=== PATIENT | male | born 1960 | race Caucasian/White ===

== ENCOUNTER 2017-05-12 10:33 | Day surgery (SDC) | payer OTHER ==
[~2017-05-12] VITALS: Ht 170.2 cm; Wt 95.2 kg
[~2017-05-12 10:33] MED LIST: ASPI-973 PO; ATOR40TA69 PO; CHOL200025 PO; GLPZ5T PO; LISI-571 PO; Lactated Ringer's 1,000 ML IV ONE; METF1000 PO; OMEP20TA24 PO; UBID100C PO
[2017-05-12] MEDS ORDERED: Propofol 10,000 mCg/mL 20 mL Inj ONE (10:34)
[2017-05-12 11:21] VITALS: BP 120/76; PULSE 64; RESP 16; O2SAT 96
--- NOTE | 2017-05-12 11:55 | PCM.HPANE ---
Patient Data Surgeon Admitting Provider: Attending Provider:Kalyan Altamirano MD Primary Care Physician:Vidhya Joshua MD Other Provider:Mauro Ellis Anesthesia Reason for Visit Colon Cancer Screening Ht/WT & BMI Height (Feet): 5 Height (Inches): 7 Weight (Kilograms): 95.25 Body Mass Index 32.00 Allergies Coded Allergies: No Known Drug Allergies (Verified Allergy, Unknown, 05/12/17) Past Anesthesia History Anesthesia History: Denies:: Abnormal Airway, Anesthesia Reactions, Difficult Intubation, Fam Anesthesia Reaction, Fam Malignant Hypertherm, Malignant Hyperthermia Diabetes History Hx Diabetes?: Yes MRSA MRSA: No Medications Blood Thinner: Aspirin Last Dose Blood Thinner: May 11, 2017 Home Meds Incl Beta Lou: No Active Scripts Lisinopril 5 Mg Tablet5 Mg PO DAILY #30 TABLET Ref 0 Prov:Mary Lyles DO 03/16/16 Atorvastatin Calcium 40 Mg Epkxqw82 Mg PO HS #30 TABLET Prov:Mary Lyles DO 03/16/16 Reported Medications Cholecalciferol (Vitamin D3) (Vitamin D3)2,000 Unit Tablet2,000 Unit PO DAILY 05/11/17 Omeprazole Magnesium (Prilosec Otc)20 Mg Tablet.dr20 Mg PO 3x week #1 PKG Ref 0 05/11/17 Glipizide 5 Mg Tablet5 Mg PO HS 30 Days 05/11/17 Ubidecarenone (Coenzyme Q10)100 Mg Pebpein662 Mg PO DAILY 05/11/17 Aspirin 81 Mg Falric02 Mg PO DAILY Ref 0 05/11/17 Metformin (Glucophage)1,000 Mg Tablet1,000 Mg PO BID Ref 0 05/11/17 Discontinued Reported Medications Glipizide 5 Mg Tablet2.5 Mg PO MORNING 30 Days 05/11/17 Discontinued Scripts [place], Insulin Disposable (Lite Touch)1 Each Dis.needle #90 Each Mc Prov:Mary Lyles DO 03/16/16 Syring W-Ndl,Disp,Insul,0.3ML (Insulin Syringe)1 Each Disp.syrin #90 Each Mc Prov:Mary Lyles DO 03/16/16 Insulin Lispro (HumaLOG U100 Insulin Pen)100 Unit/1 Ml Insuln.pen5 Unit SUBQ DIRECTED #30 PENINJ Ref 0 < 140: 0 unit 141-199: 1 unit 200-249: 2 units 250-299: 3 units 300-349: 4 units >350: 5 units Prov:Mary Lyles DO 03/16/16 Metformin ER 500 Mg Ffzwef158 Mg PO BID #60 TABLET Ref 0 Prov:Mary Lyles DO 03/16/16 Insulin Glargine (Lantus U100 Insulin Vial)100 Unit/Ml Vial16 Unit SUBQ HS #30 VIAL Ref 0 Prov:Mary Lyles DO 03/16/16 Aspirin Chew 81 Mg Chew81 Mg PO DAILY #30 Prov:Mary Lyles DO 03/16/16 Blood Glucose Cntl Hi & Normal (Accu-Chek Compact Blue Control)1 Each Each #1 Each Mc Prov:Mary Lyles DO 03/16/16 History History of ENT Problems?: No HEENT History: Denies:: Abnormal Airway Difficult Intubation Dysphagia Hearing Problem Denture Type: None Teeth Condition: Within Normal Limits Hx of Heart Problems?: Yes Cardiovascular History: Positive for:: Hypertension Denies:: AICD Atrial Fibrillation Chest Pain Pacemaker Valvular Heart Disease Other History/Comments well controlled htn with medications Hx of Respiratory Problem?: No Respiratory History: Denies:: Asthma COPD Cough Hemoptysis Pneumonia Tuberculosis Hx Neurologic Problems?: Yes Neurological History: Positive for:: CVA (03/2016) Other History/Comments residual right side dweakness Hx of GI Problems?: Yes Other History/Comment screening colonoscopy Hx of Problems?: No Hx Musculoskeletal Problems?: No Musculoskeletal History: Denies:: Fibromyalgia Joint Replacement Hx of Psycho/Social Problems?: No Psycho Social History: Denies:: Anxiety Hx Depression Hx Surgeries?: Yes (tonsils) Hx Any Other Health Problems?: No History Blood Transfusions: Denies:: Blood Transfusions Hx Diabetes: Yes Hx Alcohol Use: Yes (once in a while)Hx Substance Use: No Smoking Status: Never Smoker Stop/Bang Treated for Sleep Apnea?: No Do You Have a CPAP Machine?: No S-Snoring: Do You Snore Loudly: No T-Tired: feel tired, fatigued: No O-Obsered: Observed not breath: No P-Blood Pressure: treated: Yes B- Body Mass Index > 35 kg/m2: No A- Age over 50: Yes N- Neck Large Circumference: No G- Gender Male: Yes KERRI Total Score: 3 Risk Assessment Category Category 1A: Patient has history of documented sleep apnea, and HAS NOT received any narcotic, sedative or anesthesia administration during this stay. Category 1B: Patient has history of documented sleep apnea, and HAS received any narcotic , sedative or anesthesia administration during this stay Category 2: Patient has SUSPECTED Obstructive Sleep Apnea, and HAS received any narcotic , sedative or anesthesia administration during this stay. Category 3: Patient has SUSPECTED Obstructive Sleep Apnea and HAS NOT received narcotic, sedative or anesthesia administration during this stay. Category 4: Outpatient in Procedural Areas with known sleep apnea or who screen positive for High Risk via the STOP/BANG questionnaire. Exam Exam Vital Signs Vital Signs Date Time Temp Pulse Resp B/P Pulse Ox O2 Delivery O2 Flow Rate FiO2 05/12/17 11:21 36.6 64 16 120/76 96 Room Air General Appearance: Alert, Oriented X3, Cooperative, No Acute Distress HEENT/AIRWAY: MP 2 Lungs: Clear to Auscultation, Normal Air Movement Heart: Exam Unremarkable, Regular Rate/Rhythm, No Murmurs/Rubs/Gallops Meds/Labs/Diagnostics Admission Meds Current Medications Lactated Ringer's (Lr) 1,000 ml @ 10 mls/hr Q24H ONCE IV Last administered on 05/12/17 11:28; Start 05/12/17 at 06:00; Stop 05/13/17 at 05:59 Plan Impression Patient chart reviewed, patient interviewed and anesthestic plan with risks, benefits, and alternatives discussed, and informed consent obtained. ASA Physical Status: ASA3 Severe Disease Anesthetic Plan: TIVA Bene/Risks/Altern/Consents: Yes HP Complete Prior to Induction: Yes Amadou Velazquez MD May 12, 2017 11:55
[2017-05-12 12:20] VITALS: BP 102/68; PULSE 74; RESP 16; O2SAT 95
--- NOTE | 2017-05-12 12:25 | PCM.ANEP1 ---
Post Anesthesia PACU Phase 1 Assessment Vital Signs Vital Signs Date Time Temp Pulse Resp B/P Pulse Ox O2 Delivery O2 Flow Rate FiO2 05/12/17 12:20 74 16 102/68 95 Room Air 05/12/17 11:21 36.6 64 16 120/76 96 Room Air Anesthetic Administered: TIVA Level of Alertness: Awake, talking PAREKH's with Equal Strength: Yes Pain: No Nausea or Vomiting: No CV Function & Hydration Stable: Yes Airway Device: Oxygen Delivery: Nasal Cannula Lungs: Clear to Auscultation, Normal Air Movement PACU Phase 2 Assessment Complications: No Follow up Care: No Patient Instructions Provided: N/A Amadou Velazquez MD May 12, 2017 12:25
[2017-05-12 12:40] VITALS: BP 118/77; PULSE 66; RESP 14; O2SAT 98
--- NOTE | 2017-05-12 13:05 | ENDO ---
[address] [address] ENDOSCOPY PROCEDURE PATIENT: TRISTAN RANDALL : 1960 MR#: [id number] ADMIT: 05/12/2017 JOB ID: [id number] DATE: 05/12/2017 PROCEDURE: Colonoscopy. INDICATION: Colon cancer screening. The patient's ASA classification, Mallampati score and medications as per Dr. Jhonathan Velazquez's anesthesia report. INSTRUMENT USED: PCF H 180 AL. PREPARATION QUALITY: Was poor. PROCEDURE DETAILS: After informed consent was obtained, the patient was brought into the GI suite, where he was placed on oxygen via nasal cannula and monitored with continuous pulse oximeter, telemetry and blood pressure monitoring. A time-out was performed. Then, he was placed in the left lateral decubitus position and medications were administered for sedation. Digital rectal examination was performed, which was unremarkable. The colonoscope was then inserted into the rectum and advanced under direct visualization to the cecum, which was identified by the presence of the ileocecal valve. Once the cecum was reached, the colonoscope was withdrawn back into the rectum as the mucosa and lumen were examined. In the rectum, retroflexion was performed. Following retroflexion, remaining air in the rectum was suctioned, and procedure was completed. FINDINGS: 1. The colon prep was poor and this extended from the mid transverse colon to the cecum. There was some semi-solid stool coating lining of the colon which we were unable to clear with suction and irrigation. 2. There was an approximately 6-7 mm sessile polyp that was seen in the cecum. However, as visualization was poor in the cecum, this polyp was not removed. IMPRESSION: 1. Poor prep. 2. Cecal polyp not removed. RECOMMENDATIONS: Repeat prep today and schedule for a repeat colonoscopy tomorrow. COMPLICATIONS: None. ESTIMATED BLOOD LOSS: 0.
== END 2017-05-12 23:59 | disposition home or self-care (01) ==
LOC: END 10:33
PROVIDERS: ATTEND Internal Medicine Gastroenterology
PROC: 0DJD8ZZ Inspection of Lower Intestinal Tract, Via Natural or Artificial Opening Endoscopic (ICD-10-PCS; principal; 2017-05-12 11:30)
DX: Z12.11 Encounter for screening for malignant neoplasm of colon (principal); K63.5 Polyp of colon; I69.351 Hemiplegia and hemiparesis following cerebral infarction affecting right dominant side; Z79.82 Long term (current) use of aspirin; E11.9 Type 2 diabetes mellitus without complications; Z79.84 Long term (current) use of oral hypoglycemic drugs
CPT/HCPCS: G0121; J7120

== ENCOUNTER → 2017-05-13 | Day surgery (SDC) | payer OTHER ==
[~2017-05-13] VITALS: Ht 170.2 cm; Wt 95.2 kg
[~2017-05-13] MED LIST changes: -Lactated Ringer's 1,000 ML IV ONE; +Propofol 10,000 mCg/mL 20 mL Inj ONE; +fentaNYL-PF 50 mCg/mL 2 mL Inj ONE
[2017-05-13 10:17] VITALS: BP 95/53; PULSE 89; RESP 14; O2SAT 99
[2017-05-13 16:08] VITALS: BP 134/81; PULSE 74; RESP 16; O2SAT 96
[2017-05-13] MEDS: Lactated Ringer's 1,000 ML IV ONE ×2 (16:24→16:47)
[2017-05-13 17:04] VITALS: BP 120/82; PULSE 78; RESP 16; O2SAT 96
--- NOTE | 2017-05-13 17:06 | PCM.HPANE ---
Patient Data Date of Service: May 13, 2017 (1600) Surgeon Admitting Provider: Attending Provider:Kalyan Altamirano MD Primary Care Physician:Vidhya Joshua MD Other Provider:Mauro Ellis Anesthesia Reason for Visit Colon Cancer Screening/Repeat Due To Poor Prep Ht/WT & BMI Height (Feet): 5 Height (Inches): 7 Weight (Kilograms): 95.25 Body Mass Index 32.00 Allergies Coded Allergies: No Known Drug Allergies (Verified Allergy, Unknown, 05/12/17) Past Anesthesia History Anesthesia History: Denies:: Abnormal Airway, Anesthesia Reactions, Difficult Intubation, Fam Anesthesia Reaction, Fam Malignant Hypertherm, Malignant Hyperthermia Diabetes History Hx Diabetes?: Yes Current Bedside Blood Glucose: 73 MRSA MRSA: No Medications Blood Thinner: Aspirin Last Dose Blood Thinner: May 11, 2017 Home Meds Incl Beta Lou: No Active Scripts Lisinopril 5 Mg Tablet5 Mg PO DAILY #30 TABLET Ref 0 Prov:Corey Lylesrick Tanya DO 03/16/16 Atorvastatin Calcium 40 Mg Uwurcw00 Mg PO HS #30 TABLET Prov:LylesCoreykelliemarylou Martínez DO 03/16/16 Reported Medications Cholecalciferol (Vitamin D3) (Vitamin D3)2,000 Unit Tablet2,000 Unit PO DAILY 05/11/17 Omeprazole Magnesium (Prilosec Otc)20 Mg Tablet.dr20 Mg PO 3x week #1 PKG Ref 0 05/11/17 Glipizide 5 Mg Tablet5 Mg PO HS 30 Days 05/11/17 Ubidecarenone (Coenzyme Q10)100 Mg Grlgzyn655 Mg PO DAILY 05/11/17 Aspirin 81 Mg Gszuwe53 Mg PO DAILY Ref 0 05/11/17 Metformin (Glucophage)1,000 Mg Tablet1,000 Mg PO BID Ref 0 05/11/17 Discontinued Reported Medications Glipizide 5 Mg Tablet2.5 Mg PO MORNING 30 Days 05/11/17 Discontinued Scripts [place], Insulin Disposable (Lite Touch)1 Each Dis.needle #90 Each Mc Prov:LylesMary DO 03/16/16 Syring W-Ndl,Disp,Insul,0.3ML (Insulin Syringe)1 Each Disp.syrin #90 Each Mc Prov:Mary Lyles DO 03/16/16 Insulin Lispro (HumaLOG U100 Insulin Pen)100 Unit/1 Ml Insuln.pen5 Unit SUBQ DIRECTED #30 PENINJ Ref 0 < 140: 0 unit 141-199: 1 unit 200-249: 2 units 250-299: 3 units 300-349: 4 units >350: 5 units Prov:Mayr Lyles DO 03/16/16 Metformin ER 500 Mg Dmijgh432 Mg PO BID #60 TABLET Ref 0 Prov:Mary Lyles DO 03/16/16 Insulin Glargine (Lantus U100 Insulin Vial)100 Unit/Ml Vial16 Unit SUBQ HS #30 VIAL Ref 0 Prov:Mary Lyles DO 03/16/16 Aspirin Chew 81 Mg Chew81 Mg PO DAILY #30 Prov:Mary Lyles DO 03/16/16 Blood Glucose Cntl Hi & Normal (Accu-Chek Compact Blue Control)1 Each Each #1 Each Mc Prov:Mary Lyles DO 03/16/16 History History of ENT Problems?: No HEENT History: Denies:: Abnormal Airway Difficult Intubation Dysphagia Hearing Problem Denture Type: None Teeth Condition: Within Normal Limits Hx of Heart Problems?: Yes Cardiovascular History: Positive for:: Hypertension Denies:: AICD Atrial Fibrillation Chest Pain Pacemaker Valvular Heart Disease Hx of Respiratory Problem?: No Respiratory History: Denies:: Asthma COPD Cough Hemoptysis Pneumonia Tuberculosis Hx Neurologic Problems?: Yes Neurological History: Positive for:: CVA (03/2016) Hx of GI Problems?: Yes Hx of Problems?: No Hx Musculoskeletal Problems?: No Musculoskeletal History: Denies:: Fibromyalgia Joint Replacement Hx of Psycho/Social Problems?: No Psycho Social History: Denies:: Anxiety Hx Depression Hx Surgeries?: Yes (tonsils) Hx Any Other Health Problems?: No History Blood Transfusions: Denies:: Blood Transfusions Hx Diabetes: YesBedside Blood Glucose: 73 Hx Alcohol Use: Yes (once in a while)Hx Substance Use: No Smoking Status: Never Smoker Stop/Bang Treated for Sleep Apnea?: No Do You Have a CPAP Machine?: No S-Snoring: Do You Snore Loudly: No T-Tired: feel tired, fatigued: No O-Obsered: Observed not breath: No P-Blood Pressure: treated: Yes B- Body Mass Index > 35 kg/m2: No A- Age over 50: Yes N- Neck Large Circumference: No G- Gender Male: Yes KERRI Total Score: 3 Risk Assessment Category Category 1A: Patient has history of documented sleep apnea, and HAS NOT received any narcotic, sedative or anesthesia administration during this stay. Category 1B: Patient has history of documented sleep apnea, and HAS received any narcotic , sedative or anesthesia administration during this stay Category 2: Patient has SUSPECTED Obstructive Sleep Apnea, and HAS received any narcotic , sedative or anesthesia administration during this stay. Category 3: Patient has SUSPECTED Obstructive Sleep Apnea and HAS NOT received narcotic, sedative or anesthesia administration during this stay. Category 4: Outpatient in Procedural Areas with known sleep apnea or who screen positive for High Risk via the STOP/BANG questionnaire. Exam Exam Vital Signs Vital Signs Date Time Temp Pulse Resp B/P Pulse Ox O2 Delivery O2 Flow Rate FiO2 05/13/17 17:04 78 16 120/82 96 Room Air 05/13/17 16:08 74 16 134/81 96 Room Air General Appearance: Alert, Oriented X3, Cooperative, No Acute Distress HEENT/AIRWAY: MP 3 Lungs: Clear to Auscultation Heart: Exam Unremarkable Meds/Labs/Diagnostics Admission Meds Current Medications Lactated Ringer's (Lr) 1,000 ml @ 10 mls/hr Q24H ONCE IV Last administered on 05/13/17t 16:47; Start 05/13/17 at 13:25; Stop 05/14/17 at 13:24 Bedside Blood Glucose: 73 Plan Impression Patient chart reviewed, patient interviewed and anesthestic plan with risks, benefits, and alternatives discussed, and informed consent obtained. ASA Physical Status: ASA3 Severe Disease Anesthetic Plan: MAC Bene/Risks/Altern/Consents: Yes HP Complete Prior to Induction: Yes Rodolfo Black MD May 13, 2017 17:06
--- NOTE | 2017-05-13 17:06 | PCM.ANEP1 ---
Post Anesthesia PACU Phase 1 Assessment Vital Signs Vital Signs Date Time Temp Pulse Resp B/P Pulse Ox O2 Delivery O2 Flow Rate FiO2 05/13/17 17:04 78 16 120/82 96 Room Air 05/13/17 16:08 74 16 134/81 96 Room Air Anesthetic Administered: MAC Level of Alertness: Sleepy, easy to arouse PAREKH's with Equal Strength: Yes Pain: No Nausea or Vomiting: No CV Function & Hydration Stable: Yes Airway Device: Oxygen Delivery: Room Air Lungs: Clear to Auscultation Dermatome Level: Full Sensation PACU Phase 2 Assessment Complications: No Patient Instructions Provided: N/A Rodolfo Black MD May 13, 2017 17:06
[2017-05-13 17:12] VITALS: BP 119/76; PULSE 60; RESP 17; O2SAT 97
--- NOTE | 2017-05-13 17:42 | ENDO ---
[address] [address] ENDOSCOPY PROCEDURE PATIENT: TRISTAN RANDALL : 1960 MR#: [id number] ADMIT: 05/13/2017 JOB ID: [id number] DATE: 05/13/2017 PROCEDURE: Colonoscopy. INDICATION: Screening. This patient was here yesterday for a colonoscopy for screening; however, as the prep was poor, he has been brought back today after additional prep was taken. ANESTHESIA: Patient's ASA classification, Mallampati score, and medications as per Dr. Rodolfo Black's anesthesia report. INSTRUMENT USED: PCF H 180 AL. PREPARATION QUALITY: Fair. PROCEDURE DETAILS: After informed consent was obtained, the patient was brought into the GI suite, where he was placed on oxygen via nasal cannula and monitored with continuous pulse oximeter, telemetry, and blood pressure monitoring. A time-out was performed, then he was placed in the left lateral decubitus position and medications were administered for sedation. Digital rectal exam was performed which was unremarkable. The colonoscope was then inserted into the rectum and advanced under direct visualization to the cecum, which was identified by the presence of the ileocecal valve and appendiceal orifice. Once the cecum was reached, the colonoscope was withdrawn back into the rectum as the mucosa and lumen were examined. In the rectum, retroflexion was performed. Following retroflexion, the remaining air in the rectum was suctioned and the procedure was completed. FINDINGS: 1. In the cecum, there was an approximately 7 mm sessile polyp that was removed with a hot snare. 2. In the ascending colon, there was a diminutive polyp that was removed with cold biopsy forceps. 3. The remainder of the colon exam was otherwise unremarkable. IMPRESSION: 1. Cecal polyp. 2. Ascending colon polyp. RECOMMENDATIONS: 1. Avoid NSAIDs and anticoagulants for 72 hours. 2. Repeat colonoscopy in five years. COMPLICATIONS: None. ESTIMATED BLOOD LOSS: Less than 5 mL.
--- NOTE | 2017-05-19 09:33 | PATH ---
SURGICAL PATHOLOGY Attending Physician:Mitch Rodriguez CASE STATUS: Signed Out PATIENT NAME: TRISTAN RANDALL PID: [id number] : 1960 DATE COLLECTED:05/13/2017 00:00 SPECIMEN: 1: Colon, Polyp 2: Colon, Polyp CLINICAL HISTORY: 1). CECAL POLYP 2). ASCENDING COLON POLYP FINAL DIAGNOSIS: 1.CECAL POLYP: TUBULAR ADENOMA, MULTIPLE FRAGMENTS. ONE POLYP REMOVED. 2.ASCENDING COLON POLYP: BENIGN COLONIC MUCOSA WITH SUPERFICIAL HYPERPLASTIC CHANGES. NEGATIVE FOR DYSPLASIA AND MALIGNANCY. ICD10 D12.0 GROSS DESCRIPTION: Received are two formalin-filled containers, both labeled with the patient' s name: 1. Received in formalin, labeled with the patient' s name and "cecal polyp", are multiple fragments of yip, soft tissue ranging in size from 0.1 x 0.1 x 0.1 cm to 0.2 x 0.1 x 0.1 cm. All fragments are totally submitted in cassette 1A. 2. Received in formalin, labeled with the patient' s name and "ascending polyp", is one fragment of yip, soft tissue measuring 0.1 x 0.1 x 0.1 cm. The fragment is totally submitted in cassette 2A. ([id number]) MICRO DESCRIPTION: See diagnosis. ICD-9 CODES: CPT CODES: 1: 38825 2: 21008 Electronically Signed Out Priya Costello MD [facility], [place] [address] Technical component performed at [facility], [facility] [address], [place], [address]
== END | disposition home or self-care (01) ==
LOC: END 00:22
PROVIDERS: ATTEND Internal Medicine Gastroenterology
DX: Z12.11 Encounter for screening for malignant neoplasm of colon (principal); D12.0 Benign neoplasm of cecum; K63.5 Polyp of colon; I10 Essential (primary) hypertension; E11.9 Type 2 diabetes mellitus without complications; Z79.82 Long term (current) use of aspirin; Z79.4 Long term (current) use of insulin; Z79.84 Long term (current) use of oral hypoglycemic drugs; Z86.73 Personal history of transient ischemic attack (TIA), and cerebral infarction without residual deficits
CPT/HCPCS: 45380; 45385; J3010; J7120